=== PATIENT | female | born 1960 | race Caucasian/White ===

== ENCOUNTER 2018-07-19 06:13 | Day surgery (SDC) | payer OTHER ==
[~2018-07-19 06:13] MED LIST: Buffered Lidocaine 0.9% SYRIN* 5 ML/SYR SYRINGE INTRADERM ONE; Dexamethasone IV* 4 MG/ML 1 ML (4 MG) IV SLOW PU ONE; Famotidine IV* 10 MG/ML 2 ML (20 mg) IV ONE
[2018-07-19] MEDS ORDERED: Famotidine IV* 10 MG/ML 2 ML (20 mg) ONE (06:25)
[2018-07-19] MEDS ORDERED: Dexamethasone IV* 4 MG/ML 1 ML (4 MG) ONE (06:25)
[2018-07-19] MEDS ORDERED: Buffered Lidocaine 0.9% SYRIN* 5 ML/SYR SYRINGE ONE (06:25)
[2018-07-19] MEDS ORDERED: Bupivacaine 0.25% W/EPI* 10 ML SDV ONE ×2 (07:15→07:16)
[2018-07-19] MEDS ORDERED: Bupivacaine 0.25% SDV* 30 ML ONE (07:15)
[2018-07-19] MEDS ORDERED: DiMENhydriNATE IV* 50 MG/ML VIAL IV PUSH PRN (07:21)
[2018-07-19] MEDS ORDERED: Naloxone* 0.4 MG/ML 1 ML VIAL IV PRN (07:21)
[2018-07-19] MEDS ORDERED: Ondansetron INJ* 2 MG/ML VIAL IV PRN (07:21)
[2018-07-19] MEDS ORDERED: oxyCODONE/Acetamin 5/325 MG* TAB PO PRN (07:21)
[2018-07-19] MEDS ORDERED: Ketorolac INJ* 30 MG/ML 1 ML VIAL ONE (07:26)
[2018-07-19] MEDS ORDERED: Ondansetron INJ* 2 MG/ML VIAL ONE (07:26)
[2018-07-19] MEDS ORDERED: Propofol* 10 MG/ML 20 ML BTL IV PUSH ONE (07:26)
[2018-07-19] MEDS ORDERED: Midazolam* 1 MG/ML 5 ML VIAL (5 MG) ONE (07:26)
[2018-07-19] MEDS ORDERED: fentaNYL* 50 MCG/ML 2 ML VIAL (100 MCG VIAL) ONE (07:26)
[2018-07-19 09:06] VITALS: BP 130/79
--- NOTE | 2018-07-19 09:14 | OP ---
OPERATIVE REPORT: DATE OF OPERATION: 07/19/18 DATE OF : 60 SURGEON: Delbert Hou MD COMMERCIAL ADMINISTRATOR: TARUN Kahn ANESTHESIOLOGIST: Dr. Vaughn. ANESTHESIA: Local MAC. PRE-OP DIAGNOSIS: Right carpal tunnel syndrome. POST-OP DIAGNOSIS: Right carpal tunnel syndrome. OPERATIVE PROCEDURE: Right open carpal tunnel release. INDICATIONS: Yesi is a 57-year-old. She has had right carpal tunnel for quite some time. We had talked about risks and benefits. She understood and wished to proceed with surgery. ESTIMATED BLOOD LOSS: 2 mL. COMPLICATIONS: None. FINDINGS: See above and below. DESCRIPTION OF PROCEDURE: Yesi was seen in the preoperative holding area. The correct site, side , and procedure were identified. We came back to the operating room where the arm was prepped and dr rangel in the usual fashion. A time-out was performed. The arm was exsanguinated with the Esmarch and the tourniquet inflated to 250 mmHg. I made a 2 to 3 c m longitudinal incision in the typical location for an open carpal tunnel release. Dissection was ca rried down through the subcutaneous tissue and palmar fascia. The transverse carpal ligament was the n released just off the radial aspect of the hook of the hamate. The release was completed from dist al to proximal. Proximally, I released the subcutaneous tissue and fascia and then released the kerri fina of the transverse carpal ligament and the distal antebrachial fascia under direct visualization . Once the release was confirmed proximally and distally, and there was no compression on the nerve we irrigated out the wounds. The skin was closed with 4-0 nylon suture. The wounds were dressed wit h soft dressings. Tourniquet was deflated and she was taken to the recovery room in stable condition . [id number]/[facility] #: [id number]
== END 2018-07-19 09:27 | disposition home or self-care (01) ==
LOC: OR 06:13
PROVIDERS: ATTEND Orthopaedic Surgery Hand Surgery
DX: G56.01 Carpal tunnel syndrome, right upper limb (principal); E03.9 Hypothyroidism, unspecified; F41.8 Other specified anxiety disorders
CPT/HCPCS: J1100; J1885; J2250; J2405; J2704; J3010

== ENCOUNTER → 2018-08-30 09:42 | Day surgery (SDC) | payer OTHER ==
[~2018-08-30 09:42] MED LIST changes: +Acetaminophen TAB* 325 MG PO PRN; +Bupivacaine 0.25% SDV PF* 10 ML VIAL INJ ONE; -Dexamethasone IV* 4 MG/ML 1 ML (4 MG) IV SLOW PU ONE; -Famotidine IV* 10 MG/ML 2 ML (20 mg) IV ONE; +Ibuprofen TAB* 600 MG PO PRN; +Midazolam* 1 MG/ML 2 ML VIAL (2 MG) ONE; +Naloxone* 0.4 MG/ML 1 ML VIAL IV PRN; +Ondansetron INJ* 2 MG/ML VIAL IV PRN; +Propofol* 10 MG/ML 20 ML BTL ONE; +fentaNYL* 50 MCG/ML 2 ML VIAL (100 MCG VIAL) IV PRN; +fentaNYL* 50 MCG/ML 2 ML VIAL (100 MCG VIAL) ONE; +oxyCODONE/Acetamin 5/325 MG* TAB PO PRN
[2018-08-30 14:41] VITALS: BP 129/77
--- NOTE | 2018-08-30 20:10 | OP ---
DATE OF OPERATION: 08/30/18 - [facility] DATE OF : 60 SURGEON: Delbert Hou MD GREENKEEPER: TARUN Kahn ANESTHESIOLOGIST: Dr. Escalera. ANESTHESIA: Local MAC. PRE-OP DIAGNOSIS: Left carpal tunnel syndrome. POST-OP DIAGNOSIS: Left carpal tunnel syndrome. OPERATIVE PROCEDURE: Left open carpal tunnel release. INDICATIONS: Yesi has progressive carpal tunnel syndrome. We had talked about risks and benefits. She had wanted to proceed with surgery. FINDINGS: See above and below. ESTIMATED BLOOD LOSS: 2 mL. COMPLICATIONS: None. DESCRIPTION OF PROCEDURE: Yesi was seen in the preoperative holding area. The correct site, side, and procedure were identified. We came back to the operating room. The arm was prepped and draped in the usual fashion. A time- out was performed. The arm was exsanguinated with the Esmarch and the tourniquet was inflated to 250 mmHg. I made a 2 cm longitudinal incision in the proximal aspect of the palm in the typical location for an open carpal tunnel release. Dissection was carried down through the subcutaneous tissue and palmar fascia. This was released proximally and distally with the tenotomy scissors. The release was then completed from distal to proximal releasing the transverse carpal ligament just off the of the radial aspect of the hook of the hamate. Proximally, the subcutaneous tissue was released and retracted out of the way with a Colby retractor and then the remainder of the transverse carpal ligament was released together with some of the distal antebrachial fascia to a level several centimeters proximal to the wrist flexion crease. Once the release was checked , it was good distally and proximally. We irrigated out the wound. The skin was closed with 4-0 nylon suture. Wounds were dressed and she was taken to recovery room in stable condition. [id number]/[facility] #: [id number] [facility]
== END | disposition home or self-care (01) ==
LOC: OR 09:42
PROVIDERS: ATTEND Orthopaedic Surgery Hand Surgery
DX: G56.02 Carpal tunnel syndrome, left upper limb (principal); Z79.899 Other long term (current) drug therapy; E03.9 Hypothyroidism, unspecified
CPT/HCPCS: J2250; J2704; J3010; J3490